=== PATIENT | female | born 1970 ===

== ENCOUNTER 2017-01-04 08:02 | Emergency (ER) | payer OTHER ==
[2017-01-04 08:08] VITALS: O2SAT 98; BMI 31.1
[2017-01-04 08:32] VITALS: TEMP 97
[2017-01-04] MEDS ORDERED: Acetaminophen 650mg/20.3ml solution UD PO ONE (09:29)
--- NOTE | 2017-01-04 09:35 | ED PDOC ---
HPI: Back Time Seen by Provider: 01/04/17 09:00 Chief Complaint (Nursing): Back Pain History Per: Patient History/Exam Limitations: no limitations Onset/Duration Of Symptoms: Days Current Symptoms Are (Timing): Still Present Full Body Front + Back: 1 - LBP radiates up shoulders and neck and down legs Quality Of Discomfort: "Pain" Severity: Severe Pain Scale Rating Of: 9 Exacerbating Factor(s): Turning Additional Complaint(s): CC: back pain HPI: 46 y/o woman w/ PMH of HTN presents w/ low back pain. Patient reports back pain for 8 days but worsened over past 5 days. The patient reports the pain started while working but denied lifting heavy weights. The patient reports midline lumbar pain, 9/10 in intensity, that radiates up both shoulders and neck and down to legs. The patient denies incontinence, saddle anesthesia, falls or trauma. The patient reports mild dysuria but denies headaches, chest pain, SOB, abdominal pain, nausea, vomiting, diarrhea, and fever. PMH: HTN medications: losartan 100 mg PO daily PSH: hysterectomy 2011 SOC: denies smoking, alcohol, and drugs ROS: denies 12 points assessed unless otherwise reported in HPI - Risk Factors AAA Risk Factors: Pos: Hypertension Neg: Older Than 49 Years Of Age, Connective Tissue Disease, Marfan's Syndrome , Regan-Danlos Syndrome, Prior AAA, 1st Degree Relative/s With AAA Past Medical History Vital Signs: Last Vital Signs Temp 97.0 F L 01/04/17 08:23 Pulse 83 01/04/17 08:23 Resp 19 01/04/17 08:23 BP 152/89 H 01/04/17 08:23 Pulse Ox 98 01/04/17 08:23 - Medical History PMH: HTN Denies: Chronic Kidney Disease - Family History Family History: States: Unknown Family Hx - Home Medications Home Medications: Ambulatory Orders Medication Instructions Recorded Albuterol HFA [Ventolin HFA 90 2 puff IH [id number] PRN #1 each 07/10/16 mcg/actuation (8 g)] Azithromycin [Zithromax] 250 mg PO DAILY #6 tab 07/10/16 Promethazine DM [Phenergan DM 5 - 10 ml PO Q8 PRN #120 ml 07/10/16 Syrup] Cyclobenzaprine [Cyclobenzaprine 10 mg PO TID PRN #15 tab 01/04/17 HCl] - Allergies Allergies/Adverse Reactions: Allergies Allergy/AdvReac Type Severity Reaction Status Date / Time aspirin Allergy RASH Verified 01/04/17 08:23 Penicillins Allergy RASH Verified 01/04/17 08:23 Review of Systems ROS Statement: Except As Marked, All Systems Reviewed And Found Negative Constitutional: Negative for: Fever, Sweats Cardiovascular: Negative for: Chest Pain, Palpitations, Edema, Light Headedness Respiratory: Negative for: Cough, Shortness of Breath, Hemoptysis Gastrointestinal: Negative for: Nausea, Vomiting, Abdominal Pain, Diarrhea Genitourinary Female: Positive for: Dysuria. Negative for: Hematuria Musculoskeletal: Positive for: Neck Pain, Shoulder Pain, Back Pain Skin: Negative for: Rash Neurological: Negative for: Confusion, Altered Mental Status, Headache, Dizziness Physical Exam - Reviewed Nursing Documentation Reviewed: Yes Vital Signs Reviewed: Yes (elevated BP 152/89) - Physical Exam Appears: Positive for: No Acute Distress Head Exam: Positive for: ATRAUMATIC, NORMOCEPHALIC Skin: Positive for: Normal Color, Warm, Dry Eye Exam: Positive for: Normal appearance Neck: Positive for: Supple Cardiovascular/Chest: Positive for: Regular Rate, Rhythm, Chest Non Tender. Negative for: Murmur, Tachycardia Respiratory: Positive for: Normal Breath Sounds. Negative for: Decreased Breath Sounds, Accessory Muscle Use, Wheezing, Respiratory Distress Pulses-Carotid (L): 2+ Pulses-Carotid (R): 2+ Pulses-Radial (L): 2+ Pulses-Radial (R): 2+ Gastrointestinal/Abdominal: Positive for: Normal Exam, Bowel Sounds, Soft. Negative for: Tenderness Back: Positive for: Muscle Spasm. Negative for: L CVA Tenderness, R CVA Tenderness Extremity: Negative for: Tenderness, Calf Tenderness Neurologic/Psych: Positive for: Alert, Oriented - ECG O2 Sat by Pulse Oximetry: 98 Medical Decision Making Medical Decision Makin46 y/o woman w/ PMH of HTN presents w/ low back pain. Most likely secondary to musculoskeletal pain tylenol 650 mg PO instead of motrin due to aspirin allergy re-evaluated 10:45 patient feels better Dispo: discharge home, counseled to follow up w/ PMD, discharged w/ flexeril 10 mg TID PO #15 Disposition - Clinical Impression Clinical Impression: Back pain - Patient ED Disposition Is Patient to be Admitted: No Discussed With Dr.: Terese Damon Counseled Patient/Family Regarding: Need For Followup, Rx Given - Disposition Referrals: [facility] [Outside] Disposition: Routine/Home Disposition Time: 11:23 Condition: STABLE Prescriptions: Cyclobenzaprine [Cyclobenzaprine HCl] 10 mg PO TID PRN #15 tab PRN Reason: Pain Instructions: Back Pain (ED) Print Language: VENEZUELAN - POA Present On Arrival: None
[2017-01-04 11:45] VITALS: BP 128/92; PULSE 80; RESP 18
== END 2017-01-04 11:40 | disposition home or self-care (01) ==
LOC: H.ER 08:02
DX: M54.9 Dorsalgia, unspecified (principal); I10 Essential (primary) hypertension; Z88.0 Allergy status to penicillin

== ENCOUNTER 2018-03-14 14:00 | Observation (INO) | payer OTHER ==
[2018-03-14 14:01] VITALS: BMI 34.2
--- NOTE | 2018-03-14 15:05 | ED PDOC ---
HPI: General Adult Time Seen by Provider: 03/14/18 15:03 Chief Complaint (Nursing): Chest Pain Chief Complaint (Provider): CP History Per: Patient (47 Y/O FEMALE H/O HTN HERE WITH INTERMITTENT LEFT CHEST PAIN ASSOCIATED WITH NUMBNESS ALONG ARM X 1 WEEK. PATIENT STATES SHE HAS SIMILAR SYMPTOMS ON AND OFF IN PAST. NOTES NECK PAIN ASSOCIATED WITH SYMPTOMS AND AGGRAVATION OF SYMPTOMS WITH MOVEMENT OF NECK. DENIES ANY WEAKNESS IN ARMS. NOTES BACK PAIN CURRENTLY.) Past Medical History Reviewed: Historical Data, Nursing Documentation, Vital Signs Vital Signs: Last Vital Signs Temp 98.4 F 03/14/18 14:13 Pulse 71 03/14/18 15:00 Resp 19 03/14/18 15:00 BP 143/96 H 03/14/18 15:00 Pulse Ox 98 03/14/18 15:05 - Medical History PMH: HTN Denies: Chronic Kidney Disease - Family History Family History: States: Unknown Family Hx - Home Medications Home Medications: Ambulatory Orders Medication Instructions Recorded Cyclobenzaprine [Cyclobenzaprine 10 mg PO TID PRN #15 tab 05/07/17 HCl] Losartan [Cozaar] 100 mg PO DAILY #30 tab 05/07/17 Famotidine [Pepcid] 20 mg PO BID #28 tab 11/08/17 - Allergies Allergies/Adverse Reactions: Allergies Allergy/AdvReac Type Severity Reaction Status Date / Time aspirin Allergy RASH Verified 11/08/17 09:58 Penicillins Allergy RASH Verified 11/08/17 09:58 Review of Systems ROS Statement: Except As Marked, All Systems Reviewed And Found Negative Physical Exam - Reviewed Nursing Documentation Reviewed: Yes Vital Signs Reviewed: Yes - Physical Exam Appears: Positive for: Well, Non-toxic, No Acute Distress Head Exam: Positive for: ATRAUMATIC, NORMAL INSPECTION, NORMOCEPHALIC Skin: Positive for: Normal Color, Warm, DRY Eye Exam: Positive for: EOMI, Normal appearance, PERRL ENT: Positive for: Normal ENT Inspection Neck: Positive for: Normal, Painless ROM Cardiovascular/Chest: Positive for: Regular Rate, Rhythm Respiratory: Positive for: CNT, Normal Breath Sounds Gastrointestinal/Abdominal: Positive for: Normal Exam, Soft Back: Positive for: Normal Inspection, Vertebral Tenderness (LEFT PARLUMBAR TENDERNESS) Extremity: Positive for: Normal ROM Neurologic/Psych: Positive for: Alert, Oriented - Laboratory Results Result Diagrams: 03/14/18 15:20 03/14/18 15:20 - ECG ECG Rhythm: Positive for: Sinus Rhythm (Q WAVES NOTED V1/V2 NEW SINCE OLD EKG 2017) O2 Sat by Pulse Oximetry: 98 - Progress ED Course And Treament: CXR: WNL D/W DR. ALMARAZ. PATIENT ALLERGIC TO ASPIRIN. D/W DR. HYATT. ADMIT TO TELE OBSERVATION FOR NEW EKG CHANGES Disposition - Clinical Impression Clinical Impression: Abnormal Q waves on electrocardiogram - Patient ED Disposition Is Patient to be Admitted: Yes - Disposition Disposition Time: 18:28 Condition: FAIR - Pt Status Changed To: Hospital Disposition Of: Observation
[2018-03-14 15:39] LABS: BASO # 0.1 K/uL (0.0-0.2); BASO % 0.6 % (0.0-2.0); EOS # 0.1 K/uL (0.0-0.7); EOS % 1.1 % (0.0-4.0); HEMOGLOBIN 13.1 g/dL (12.0-16.0); LYMPH % 33.1 % (20.0-40.0); MEAN CORPUSCULAR HGB CONC 34.2 g/dL (33.0-37.0); MEAN PLATELET VOLUME 7.9 fl (7.2-11.7); MONO # 0.5 K/uL (0.0-0.8); MONO % 5.6 % (0.0-10.0); NEUT # 5.5 K/uL (1.8-7.0); NEUT % 59.6 % (50.0-75.0); NRBC % 0.1 % (0.0-0.0); RBC 4.69 Mil/uL (3.80-5.20); RED CELL DISTRIBUTION WIDTH 14.4 % (11.5-14.5); WHITE BLOOD COUNT 9.1 K/uL (4.8-10.8)
[2018-03-14 15:56] LABS: ALBUMIN 4.4 g/dL (3.5-5.0); BLOOD UREA NITROGEN 17 mg/dl (7-17); CALCIUM 9.5 mg/dL (8.4-10.2); GFR NON-AFRICAN AMERICAN > 60
[2018-03-14 16:15] LABS: ALT/SGPT 31 U/L (9-52); AST/SGOT 43 U/L (14-36)
--- NOTE | 2018-03-14 16:46 | RAD ---
Date of service: 03/14/2018 HISTORY: Chest pain. COMPARISON: 05/07/2017. FINDINGS: LUNGS: No active pulmonary disease. PLEURA: No significant pleural effusion identified, no pneumothorax apparent. CARDIOVASCULAR: No radiographic findings to suggest acute or significant cardiovascular disease. OSSEOUS STRUCTURES: No significant abnormalities. VISUALIZED UPPER ABDOMEN: Normal. OTHER FINDINGS: None. IMPRESSION: No active disease. No significant interval change compared to the prior examination(s).
--- NOTE | 2018-03-14 18:54 | CP.PCM.HP ---
History of Present Illness - History of Present Illness History of Present Illness: CC: Chest Pain HPI: 47 y/o woman w/ pmh of HTN presents w/ chest pain. Patient reports 4 days of left-sided chest pain that started at rest. Patient reports pain radiates to shoulder and back, 8/10 intensity, w/ associated slight SOB. Patient reports she can walk several blocks and several flights of stairs w/o SOB. Patient reports suprapubic pain w/ dysuria. Patient denies nausea, vomiting, diarrhea, and fever. ED course: vitals: 98.4F, 71 beats/min, 143/96 mm Hg, resp 19, O2 98% EKG: Q waves in leads V1 and V2, no acute ST elevation/depression, no T wave changes CXR: no active disease CBC: 9.1>13.1/38.5<374 CMP: 139/4.4, 106/24, 17/0.4, glucose 102, AST 43, ALT 31, alk phos 135 Ca2+: 9.5 Mg+: 1.8 Troponin: <0.0120 diazepam 5 mg PO PMD: none PMH: HTN meds: losartan 100 mg PO daily PSH: hysterectomy, BTL Fam: DM2- father, mother, sister, brother; HTN- mother; denies family history of SD SOC: denies smoking, alcohol, and drugs ROS: 12 points assessed, positive for dysuria but otherwise negative as stated in HPI Present on Admission - Present on Admission Any Indicators Present on Admission: No History of DVT/PE: No History of Uncontrolled Diabetes: No Urinary Catheter: No Decubitus Ulcer Present: No Review of Systems - Review of Systems All systems: reviewed and no additional remarkable complaints except - Constitutional Constitutional: absent: Chills, Fever - Cardiovascular Cardiovascular: As Per HPI, Dyspnea on Exertion - Respiratory Respiratory: absent: Cough - Gastrointestinal Gastrointestinal: Abdominal Pain. absent: Diarrhea, Nausea, Vomiting - Genitourinary Genitourinary: Dysuria - Integumentary Integumentary: absent: Rash - Neurological Neurological: absent: Dizziness, Headaches Past Patient History - Past Social History Smoking Status: Never Smoked - CARDIAC Hx Hypertension: Yes - PULMONARY Hx Respiratory Disorders: No - NEUROLOGICAL Hx Neurological Disorder: No - HEENT Hx HEENT Problems: No - RENAL Hx Chronic Kidney Disease: No - ENDOCRINE/METABOLIC Hx Endocrine Disorders: No - HEMATOLOGICAL/ONCOLOGICAL Hx Blood Disorders: No - INTEGUMENTARY Hx Dermatological Problems: No - MUSCULOSKELETAL/RHEUMATOLOGICAL Hx Musculoskeletal Disorders: No - GASTROINTESTINAL Hx Gastrointestinal Disorders: No - GENITOURINARY/GYNECOLOGICAL Hx Genitourinary Disorders: No - PSYCHIATRIC Hx Psychophysiologic Disorder: No Hx Substance Use: No - SURGICAL HISTORY Hx Hysterectomy: Yes - ANESTHESIA Hx Anesthesia: Yes Hx Anesthesia Reactions: No Hx Malignant Hyperthermia: No Meds Allergies/Adverse Reactions: Allergies Allergy/AdvReac Type Severity Reaction Status Date / Time aspirin Allergy RASH Verified 11/08/17 09:58 Penicillins Allergy RASH Verified 11/08/17 09:58 Physical Exam - Constitutional Appears: Non-toxic, No Acute Distress - Head Exam Head Exam: ATRAUMATIC, NORMAL INSPECTION, NORMOCEPHALIC - Eye Exam Eye Exam: Normal appearance - ENT Exam ENT Exam: Mucous Membranes Moist - Neck Exam Neck exam: Positive for: Full Rom. Negative for: Tenderness - Respiratory Exam Respiratory Exam: Clear to Auscultation Bilateral, NORMAL BREATHING PATTERN. absent: Decreased Breath Sounds, Rales, Rhonchi, Wheezes, Respiratory Distress - Cardiovascular Exam Cardiovascular Exam: REGULAR RHYTHM, RRR. absent: Tachycardia - GI/Abdominal Exam GI & Abdominal Exam: Normal Bowel Sounds, Soft, Tenderness (suprapubic tenderness) - Extremities Exam Extremities exam: Positive for: normal inspection. Negative for: calf tenderness, pedal edema, tenderness - Back Exam Back exam: muscle spasm Additional comments: tenderness of trapezius, supraspinatus, and infraspintaus; full ROM - Neurological Exam Neurological exam: Alert, Oriented x3 - Skin Skin Exam: Dry, Intact, Normal Color, Warm Results - Vital Signs Recent Vital Signs: Last Vital Signs Temp 98.4 F 03/14/18 14:13 Pulse 71 03/14/18 15:00 Resp 19 03/14/18 15:00 BP 143/96 H 03/14/18 15:00 Pulse Ox 98 03/14/18 18:29 - Labs Result Diagrams: 03/14/18 15:20 03/14/18 15:20 Labs: Laboratory Results - last 24 hr 03/14/18 03/14/18 15:20 15:20 WBC 9.1 RBC 4.69 Hgb 13.1 Hct 38.5 MCV 82.0 D MCH 28.0 MCHC 34.2 RDW 14.4 Plt Count 374 MPV 7.9 Neut % (Auto) 59.6 Lymph % (Auto) 33.1 [place] % (Auto) 5.6 Eos % (Auto) 1.1 Baso % (Auto) 0.6 Neut # (Auto) 5.5 Lymph # (Auto) 3.0 [place] # (Auto) 0.5 Eos # (Auto) 0.1 Baso # (Auto) 0.1 Sodium 139 Potassium 4.4 Chloride 106 Carbon Dioxide 24 Anion Gap 13 BUN 17 Creatinine 0.4 L Est GFR ( Amer) > 60 Est GFR (Non-Af Amer) > 60 Random Glucose 102 Calcium 9.5 Magnesium 1.8 Total Bilirubin 0.5 AST 43 H D ALT 31 Alkaline Phosphatase 135 H Troponin I < 0.0120 Total Protein 8.7 H Albumin 4.4 Globulin 4.3 H Albumin/Globulin Ratio 1.0 Assessment & Plan (1) Chest pain Status: Acute (2) Muscle spasm of left shoulder Status: Acute (3) Dysuria Status: Acute (4) HTN (hypertension) Status: Chronic - Assessment and Plan (Free Text) Assessment: 47 y/o woman w/ pmh of HTN presents w/ chest pain. Plan: Chest Pain - most likley MSK in nature but r/o ACS - vital signs stable - EKG: Q waves in leads V1 and V2, no acute ST elevation/depression, no T wave changes - CBC: 9.1>13.1/38.5<374 - CMP: 139/4.4, 106/24, 17/0.4, glucose 102, AST 43, ALT 31, alk phos 135 - Ca2+: 9.5 - Mg+: 1.8 - Troponin: <0.0120 - repeat EKG in AM - f/u troponin x 2 - f/u CBC, CMP, lipids, and HbA1c - admit for observation in Tele Muscle spasm of left shoulder - tenderness of left trapezius, supraspinatus, and infraspinatus on exam - allergy to aspirin - put ice on left shoulder Dysuria - suprapubic tenderness - complains of dysuria - f/u UA HTN - chronic, on losartan 100 mg PO daily Prophylactic measures - DVT: lovenox 40 mg SC daily
[2018-03-14 20:37] LABS: SQUAMOUS EPITHIAL 3 /hpf (0-5); URINE BILIRUBIN NEGATIVE (NEGATIVE); URINE BLOOD NEGATIVE (NEGATIVE); URINE CALCIUM OXALATE CRYSTALS OCC /hpf (<OCC); URINE CLARITY CLOUDY (Clear); URINE COLOR YELLOW (YELLOW); URINE GLUCOSE (UA) NEG (Normal); URINE LEUKOCYTE ESTERASE NEG Leu/uL (Negative); URINE PROTEIN NEGATIVE (NEGATIVE); URINE UROBILINOGEN 0.2-1.0 mg/dL (0.2-1.0)
[2018-03-14 20:49] LABS: HDL CHOLESTEROL 58 MG/DL (30-70)
[2018-03-14 20:59] LABS: LDL CHOLESTEROL 103 mg/dL (0-129)
--- NOTE | 2018-03-14 22:30 | CARD ---
APPROVED REPORT Date of service: 03/14/2018 <Conclusion> Normal sinus rhythm Septal infarct, age undetermined Abnormal ECG
[2018-03-15 00:33] VITALS: BP 136/78
[2018-03-15 06:16] LABS: ALB/GLOB RATIO 1.1 (1.0-2.1); ALBUMIN 4.2 g/dL (3.5-5.0); ALT/SGPT 37 U/L (9-52); AST/SGOT 36 U/L (14-36); BLOOD UREA NITROGEN 16 mg/dl (7-17); CALCIUM 9.5 mg/dL (8.4-10.2); GFR NON-AFRICAN AMERICAN > 60
[2018-03-15 06:17] LABS: BASO % 0.5 % (0.0-2.0); EOS # 0.1 K/uL (0.0-0.7); EOS % 2.1 % (0.0-4.0); HEMOGLOBIN 13.4 g/dL (12.0-16.0); LYMPH # 2.9 K/uL (1.0-4.3); LYMPH % 40.2 % (20.0-40.0); MEAN CORPUSCULAR HEMOGLOBIN 27.8 pg (27.0-31.0); MEAN CORPUSCULAR HGB CONC 33.5 g/dL (33.0-37.0); MEAN PLATELET VOLUME 7.4 fl (7.2-11.7); MONO # 0.5 K/uL (0.0-0.8); MONO % 7.5 % (0.0-10.0); NEUT # 3.6 K/uL (1.8-7.0); NEUT % 49.7 % (50.0-75.0); NRBC % 0.3 % (0.0-0.0); RBC 4.81 Mil/uL (3.80-5.20); RED CELL DISTRIBUTION WIDTH 14.4 % (11.5-14.5); WHITE BLOOD COUNT 7.1 K/uL (4.8-10.8)
[2018-03-15] MEDS ORDERED: Enoxaparin 40 mg Syringe SC SCH (09:00)
[2018-03-15 09:07] VITALS: PULSE 74; RESP 20; TEMP 97.8; O2SAT 98
--- NOTE | 2018-03-15 10:21 | CP.PCM.DIS ---
Provider - Provider Date of Admission: 03/14/18 18:31 Attending physician: Geetha Asencio MD Time Spent in preparation of Discharge (in minutes): 35 Diagnosis - Discharge Diagnosis (1) Atypical chest pain Status: Acute Comment: ACS ruled out. Likely MSK origin (2) Chest wall pain, chronic Status: Chronic Comment: F/U with PMD for further work up as outpatient. Tylenol for pain (3) EKG, abnormal Status: Chronic Comment: no ACS. further work up as outpatient advised. Patient started on BB Hospital Course - Lab Results Lab Results: Most Recent Lab Values WBC 7.1 K/uL (4.8-10.8) 03/15/18 05:15 RBC 4.81 Mil/uL (3.80-5.20) 03/15/18 05:15 Hgb 13.4 g/dL (12.0-16.0) 03/15/18 05:15 Hct 39.9 % (34.0-47.0) 03/15/18 05:15 MCV 83.0 fl (81.0-99.0) 03/15/18 05:15 MCH 27.8 pg (27.0-31.0) 03/15/18 05:15 MCHC 33.5 g/dL (33.0-37.0) 03/15/18 05:15 RDW 14.4 % (11.5-14.5) 03/15/18 05:15 Plt Count 338 K/uL (130-400) 03/15/18 05:15 MPV 7.4 fl (7.2-11.7) 03/15/18 05:15 Neut % (Auto) 49.7 % (50.0-75.0) L 03/15/18 05:15 Lymph % (Auto) 40.2 % (20.0-40.0) H 03/15/18 05:15 [place] % (Auto) 7.5 % (0.0-10.0) 03/15/18 05:15 Eos % (Auto) 2.1 % (0.0-4.0) 03/15/18 05:15 Baso % (Auto) 0.5 % (0.0-2.0) 03/15/18 05:15 Neut # (Auto) 3.6 K/uL (1.8-7.0) 03/15/18 05:15 Lymph # (Auto) 2.9 K/uL (1.0-4.3) 03/15/18 05:15 [place] # (Auto) 0.5 K/uL (0.0-0.8) 03/15/18 05:15 Eos # (Auto) 0.1 K/uL (0.0-0.7) 03/15/18 05:15 Baso # (Auto) 0.0 K/uL (0.0-0.2) 03/15/18 05:15 Sodium 140 mmol/l (132-148) 03/15/18 05:15 Potassium 4.0 MMOL/L (3.6-5.0) 03/15/18 05:15 Chloride 104 mmol/L (98-107) 03/15/18 05:15 Carbon Dioxide 28 mmol/L (22-30) 03/15/18 05:15 Anion Gap 12 (10-20) 03/15/18 05:15 BUN 16 mg/dl (7-17) 03/15/18 05:15 Creatinine 0.5 mg/dl (0.7-1.2) L 03/15/18 05:15 Est GFR ( Amer) > 60 03/15/18 05:15 Est GFR (Non-Af Amer) > 60 03/15/18 05:15 Random Glucose 116 mg/dL (65-105) H 03/15/18 05:15 Calcium 9.5 mg/dL (8.4-10.2) 03/15/18 05:15 Magnesium 1.8 MG/DL (1.6-2.3) 03/14/18 15:20 Total Bilirubin 0.5 mg/dl (0.2-1.3) 03/15/18 05:15 AST 36 U/L (14-36) 03/15/18 05:15 ALT 37 U/L (9-52) 03/15/18 05:15 Alkaline Phosphatase 125 U/L (38-126) 03/15/18 05:15 Troponin I < 0.0120 ng/mL (0.00-0.120) 03/15/18 05:15 Total Protein 8.2 G/DL (6.3-8.2) 03/15/18 05:15 Albumin 4.2 g/dL (3.5-5.0) 03/15/18 05:15 Globulin 4.0 gm/dL (2.2-3.9) H 03/15/18 05:15 Albumin/Globulin Ratio 1.1 (1.0-2.1) 03/15/18 05:15 Triglycerides 114 mg/DL (0-149) 03/14/18 20:17 Cholesterol 187 mg/dL (0-199) 03/14/18 20:17 LDL Cholesterol Direct 103 mg/dL (0-129) 03/14/18 20:17 HDL Cholesterol 58 MG/DL (30-70) 03/14/18 20:17 TSH 3rd Generation 4.52 mIU/ML (0.46-4.68) 03/15/18 05:15 Urine Color Yellow (YELLOW) 03/14/18 20:29 Urine Clarity Cloudy (Clear) 03/14/18 20:29 Urine pH 6.0 (5.0-8.0) 03/14/18 20:29 Ur Specific [place] 1.024 (1.003-1.030) 03/14/18 20:29 Urine Protein Negative mg/dL (NEGATIVE) 03/14/18 20:29 Urine Glucose (UA) Neg mg/dL (Normal) 03/14/18 20:29 Urine Ketones Negative mg/dL (NEGATIVE) 03/14/18 20:29 Urine Blood Negative (NEGATIVE) 03/14/18 20:29 Urine Nitrate Negative (NEGATIVE) 03/14/18 20:29 Urine Bilirubin Negative (NEGATIVE) 03/14/18 20:29 Urine Urobilinogen 0.2-1.0 mg/dL (0.2-1.0) 03/14/18 20:29 Ur Leukocyte Esterase Neg Zhang/uL (Negative) 03/14/18 20:29 Urine RBC (Auto) 3 /hpf (0-3) 03/14/18 20:29 Urine Microscopic WBC 1 /hpf (0-5) 03/14/18 20:29 Ur Squamous Epith Cells 3 /hpf (0-5) 03/14/18 20:29 Calcium Oxalate Crystal Occ /hpf (<OCC) H 03/14/18 20:29 - Hospital Course Hospital Course: 47 y/o F with Hx of HTN presented to ED with c/o CP to the left side, left shoulder and arm pain that was reproducible with palpation. Patient was admitted to r/o ACS. During her stay in the hosp pain markedly improved. Trops x3 normal .EKG on admission showed some abnormal Qs with not ST/T waves changes. 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 No SOB or palpitations. THe patient is stable to OR home today and f/u as outpatient. Discharge Exam - Head Exam Head Exam: ATRAUMATIC, NORMAL INSPECTION, NORMOCEPHALIC - Eye Exam Eye Exam: EOMI, PERRL - ENT Exam ENT Exam: Mucous Membranes Dry - Neck Exam Additional comments: MIld tenderness to palpation of posterior neck area. - Respiratory Exam Respiratory Exam: Chest Wall Tenderness (mild/ left side), Clear to PA & Lateral , NORMAL BREATHING PATTERN, UNREMARKABLE. absent: Wheezes, Respiratory Distress - Cardiovascular Exam Cardiovascular Exam: REGULAR RHYTHM, +S1, +S2. absent: Gallop, Systolic Murmur - GI/Abdominal Exam GI & Abdominal Exam: Normal Bowel Sounds, Soft, Unremarkable. absent: Tenderness - Extremities Exam Extremities exam: full ROM, normal capillary refill - Neurological Exam Neurological exam: Alert, Normal Gait, Oriented x3, Reflexes Normal - Psychiatric Exam Psychiatric exam: Normal Affect, Normal Mood - Skin Skin Exam: Intact, Normal Color, Warm Discharge Plan - Discharge Medications Prescriptions: Acetaminophen [Tylenol 325mg tab] 650 mg PO Q6H PRN #30 tab PRN Reason: Pain, Moderate (4-7) Carvedilol [Coreg] 12.5 mg PO Q12 #60 tab Losartan [Cozaar] 100 mg PO DAILY #30 tab - Follow Up Plan Condition: STABLE Disposition: HOME/ ROUTINE Patient education suggested?: Yes Instructions: Hypertension (DC), Hypertension (GEN), Chest Pain That Is Not Caused by the Heart (DC) Additional Instructions: Follow up at [facility] with primary care Physician in one week. Referrals: [facility] [Outside] [facility] [Outside]
[2018-03-15] MEDS ORDERED: Pneumococcal 23-Valent Vaccine IM ONE (11:34)
== END 2018-03-15 11:59 | disposition home or self-care (01) ==
LOC: H.ER 14:00 → H.ERHOLD 18:31 → H.TEL 21:46
PROVIDERS: ADMIT Hospitalist; ATTEND Hospitalist
DX: R07.89 Other chest pain (principal); Z83.3 Family history of diabetes mellitus; I10 Essential (primary) hypertension; Z90.710 Acquired absence of both cervix and uterus; R30.0 Dysuria; M79.1 Myalgia
CPT/HCPCS: 36415; 71045; 80053; 80061; 81003; 83036; 83735; 84443; 84484; 85025; 93005; 99285; G0378; J1650

== ENCOUNTER 2018-10-10 10:43 | Emergency (ER) | payer OTHER ==
[2018-10-10 10:48] VITALS: BP 179/79; PULSE 81; RESP 18; BMI 31.2
--- NOTE | 2018-10-10 11:11 | ED PDOC ---
HPI: General Adult Time Seen by Provider: 10/10/18 11:05 Chief Complaint (Nursing): Female Genitourinary Chief Complaint (Provider): back pain/urinary discomfort/lower abd pain History Per: Patient (47 y/o female h/o HTN here with lower abdominal pain/back pain/dysuria. Denies any fevers/chills. No vomiting/diarrhea. ) Past Medical History Reviewed: Historical Data, Nursing Documentation, Vital Signs Vital Signs: Last Vital Signs Temp 98 F 10/10/18 10:46 Pulse 81 10/10/18 10:46 Resp 18 10/10/18 10:46 BP 179/79 H 10/10/18 10:46 Pulse Ox 98 10/10/18 10:52 - Medical History PMH: HTN Denies: HIV, Chronic Kidney Disease - Surgical History Other surgeries: HYSTERECTOMY - Family History Family History: States: Unknown Family Hx - Home Medications Home Medications: Ambulatory Orders Medication Instructions Recorded Acetaminophen [Tylenol 325mg tab] 650 mg PO Q6H PRN #30 tab 03/15/18 Carvedilol [Coreg] 12.5 mg PO Q12 #60 tab 03/15/18 Losartan [Cozaar] 100 mg PO DAILY #30 tab 03/15/18 Acetaminophen [Acetaminophen Extra 2 tab PO Q6 PRN #24 tablet 10/10/18 Strength] diaZEpam [Valium] 5 mg PO Q8 PRN #3 tab 10/10/18 - Allergies Allergies/Adverse Reactions: Allergies Allergy/AdvReac Type Severity Reaction Status Date / Time aspirin Allergy RASH Verified 10/10/18 10:51 Penicillins Allergy RASH Verified 10/10/18 10:51 Review of Systems ROS Statement: Except As Marked, All Systems Reviewed And Found Negative Physical Exam - Reviewed Nursing Documentation Reviewed: Yes Vital Signs Reviewed: Yes - Physical Exam Appears: Positive for: Well, Non-toxic, No Acute Distress Head Exam: Positive for: ATRAUMATIC, NORMAL INSPECTION, NORMOCEPHALIC Skin: Positive for: Normal Color, Warm, DRY Eye Exam: Positive for: EOMI, Normal appearance, PERRL ENT: Positive for: Normal ENT Inspection Neck: Positive for: Normal, Painless ROM Cardiovascular/Chest: Positive for: Regular Rate, Rhythm Respiratory: Positive for: CNT, Normal Breath Sounds Gastrointestinal/Abdominal: Positive for: Normal Exam, Soft Pelvic Exam: Positive for: Other (NO CERVIX NOTED. NO VAGINAL DISCHARGE.) Back: Positive for: Normal Inspection Extremity: Positive for: Normal ROM Neurological/Psych: Positive for: Awake, Alert, Normal Tone - Laboratory Results Result Diagrams: 10/10/18 11:25 10/10/18 11:25 Urine POC: Negative Urine dip results: Negative for: Leukocyte Esterase, Blood, Nitrate, Ketones, Glucose, Bilirubin, Protein - ECG O2 Sat by Pulse Oximetry: 98 Disposition - Clinical Impression Clinical Impression: Back pain - Patient ED Disposition Is Patient to be Admitted: No - Disposition [facility]errals: [facility] [Outside] Disposition: Routine/Home Disposition Time: 12:17 Condition: FAIR Prescriptions: Acetaminophen [Acetaminophen Extra Strength] 2 tab PO Q6 PRN #24 tablet PRN Reason: Pain, Moderate (4-7) diaZEpam [Valium] 5 mg PO Q8 PRN #3 tab PRN Reason: Muscle Spasm Instructions: Lumbar Muscle Strain (DC) Forms: [facility] ED School/Work Excuse Print Language: MONTSERRATIAN
[2018-10-10 11:47] LABS: BASO % 0.4 % (0.0-2.0); EOS # 0.1 K/uL (0.0-0.7); LYMPH # 2.3 K/uL (1.0-4.3); LYMPH % 34.6 % (20.0-40.0); MEAN CELL VOLUME 83.9 fl (81.0-99.0); MEAN CORPUSCULAR HEMOGLOBIN 28.6 pg (27.0-31.0); MEAN CORPUSCULAR HGB CONC 34.1 g/dL (33.0-37.0); MEAN PLATELET VOLUME 7.7 fl (7.2-11.7); MONO # 0.4 K/uL (0.0-0.8); MONO % 6.6 % (0.0-10.0); NEUT # 3.9 K/uL (1.8-7.0); NEUT % 57.4 % (50.0-75.0); NRBC % 0.1 % (0.0-0.0); RBC 4.56 Mil/uL (3.80-5.20); RED CELL DISTRIBUTION WIDTH 13.6 % (11.5-14.5); WHITE BLOOD COUNT 6.7 K/uL (4.8-10.8)
[2018-10-10 12:02] LABS: ALB/GLOB RATIO 1.2 (1.0-2.1); ALBUMIN 4.5 g/dL (3.5-5.0); ALT/SGPT 38 U/L (9-52); AST/SGOT 35 U/L (14-36); BLOOD UREA NITROGEN 12 mg/dl (7-17); GFR NON-AFRICAN AMERICAN > 60; LIPASE 98 U/L (23-300)
[2018-10-10 13:26] VITALS: TEMP 98.8; O2SAT 100
== END 2018-10-10 13:10 | disposition home or self-care (01) ==
LOC: H.ER 10:43
DX: M54.9 Dorsalgia, unspecified (principal); I10 Essential (primary) hypertension; Z88.0 Allergy status to penicillin